=== PATIENT | female | born 1975 | race Asian ===

== ENCOUNTER 2019-07-06 10:05 | Emergency (ER) | payer OTHER ==
[~2019-07-06] VITALS: Ht 160 cm; Wt 68.5 kg
[2019-07-06 10:10] VITALS: Ht 160 cm; Wt 68.5 kg
[2019-07-06 11:55] VITALS: BP 129/83
== END 2019-07-06 11:55 | disposition home or self-care (01) ==
LOC: ED 10:05
DX: R51 Headache (principal); H53.8 Other visual disturbances
CPT/HCPCS: J1885